=== PATIENT | male | born 1960 | race Caucasian/White ===

== ENCOUNTER 2017-01-28 17:27 | Emergency (ER) | payer OTHER ==
[2017-01-28] MEDS ORDERED: PROPARACAINE 0.5% 15 ML OPHT DROP LEFTEYE ONE (17:42)
[2017-01-28] MEDS ORDERED: PROPARACAINE 0.5% 15 ML OPHT DROP ONE (17:46)
[2017-01-28] MEDS ORDERED: FLUORESCEIN SODIUM 1 MG STRIP OP ONE (17:47)
[2017-01-28 17:54] VITALS: BP 138/79; PULSE 79; RESP 16; TEMP 98.4; O2SAT 94
[2017-01-28] MEDS ORDERED: BUFFERED SALT EYE WASH,STERILE 118 ML OPHT.BTL ONE (18:02)
[2017-01-28] MEDS ORDERED: ERYTHROMYCIN 0.5% 1 GM OPHT.OINT LEFTEYE ONE (18:20)
--- NOTE | 2017-01-28 18:28 | UCPHY ---
H & P Patient Type: New Chief Complaint Nursing Narrative: pt. states was working and sawdust flew into pt.'s left eye aprox 1100 this am. Flushed left eye. Time Seen by Provider: 01/28/17 18:00 HPI/ROS: Chief Complaint: Left eye pain HPI: 56-year-old diabetic male was using chills and saw this morning onset design on would when he felt a sensation of a foreign body in his eye. He is not sure if it was a piece of wood or sawdust. He was not drooling or pad palpating metal. Has been had irritations since that time. Has a sensation deformed body in his eye. He has irrigated his eye several times. No prior injuries. He does not wear contact lenses. He is a type 1 diabetic on an insulin pump. Does have some blurry vision in that eye. ROS: 10 point Review of Systems is negative except as noted in the HPI. PMH: Type 1 diabetes on insulin pump Social History: No smoking, no alcohol, no recreational drug use Family History: non-contributory Physical Exam: General: Awake, alert, no acute distress Eye Exam Visual Acuity: See nursing note EOM: Intact OU Visual Sewell: Intact OU Pupil: Equal, round and reactive to light and accomodation OU External: Lids, lashes and margins normal OU Slit Lamp; Normal Conjuctiva, Iris normal, moderate corneal injection, there is a noted corneal defect in the central eye vision and in the 12 o'clock position, Anterior chambers clear without cells or flare, no hyphema, normal angles Fluorosceine exam: Central fluorescein uptake in the central vision overlying the pupil and in the 2 o'clock position consistent with corneal abrasion - Personal History Current Tetanus Diphtheria and Acellular Pertussis (TDAP): Yes Tetanus Vaccine Date: 2010 - Medical/Surgical History Hx Asthma: No Hx Diabetes: Yes Hx Cardiac Disease: No Hx Renal Disease: No Hx Cirrhosis: No Hx Alcoholism: No Hx HIV/AIDS: No Hx Splenectomy or Spleen Trauma: No Other PMH: Med hx-Type 1 diabetes,htn,cholesterol and thyroid. Surg-rt adhesive capsulitis - Family History Significant Family History: No pertinent family hx - Social History Smoking Status: Never smoked Constitutional: Initial Vital Signs Temperature (C) 36.9 C 01/28/17 17:42 Heart Rate 79 01/28/17 17:42 Respiratory Rate 16 01/28/17 17:42 Blood Pressure 138/79 H 01/28/17 17:42 O2 Sat (%) 94 01/28/17 17:42 O2 Delivery Mode Room Air Allergies/Adverse Reactions: Opioids - Morphine Analogues Allergy (Verified 01/28/17 17:45) Home Medications: Medication Instructions Recorded Humalog 01/28/17 Insulin Pump Syringe, 3 ml 01/28/17 Lisinopril 01/28/17 Simvastatin 01/28/17 Synthroid 01/28/17 Medical Decision Making - Data Points Medications Given: Discontinued Medications Erythromycin (Erythromycin 0.5%) 1 donnie LEFTEYE ONCE ONE Stop: 01/28/17 18:21 Last Admin: 01/28/17 18:24 Dose: 1 donnie Proparacaine HCl (Alcaine 0.5%) 1 drops LEFTEYE ONCE ONE Stop: 01/28/17 17:43 Last Admin: 01/28/17 17:42 Dose: 2 drops Departure - Departure Disposition: Home, Routine, Self-Care Clinical Impression: Corneal abrasion Condition: Good Instructions: Corneal Abrasion (ED) Additional Instructions: Apply erythromycin ointment to her left eye every 4 hours while awake for the next 3 days. Follow up with her tile sorter if not improved in 2-3 days. Referrals: NONE *PRIMARY CARE P,. [Primary Care Provider] - As per Instructions Marino Strange MD [Medical Doctor] - As per Instructions - PQRS PQRS Measurement: NA
[2017-01-28] MEDS ORDERED: ERYTHROMYCIN 0.5% 1 GM OPHT.OINT ONE (18:31)
== END 2017-01-28 18:33 | disposition home or self-care (01) ==
LOC: CED 17:27
DX: S05.02XA Injury of conjunctiva and corneal abrasion without foreign body, left eye, initial encounter (principal); X58.XXXA Exposure to other specified factors, initial encounter; E10.9 Type 1 diabetes mellitus without complications
CPT/HCPCS: 99204-PO; G0463-PO